=== PATIENT | male | born 1945 | race Caucasian/White ===

== ENCOUNTER → 2016-05-07 | Outpatient (CLI) | payer OTHER, MEDICARE | LOC: BHFA 09:30 | PROVIDERS: ATTEND Internal Medicine | DX: E78.5 Hyperlipidemia, unspecified (principal); J44.9 Chronic obstructive pulmonary disease, unspecified ==

== ENCOUNTER → 2016-05-31 | Outpatient (CLI) | payer OTHER, MEDICARE | LOC: FIMAGING 08:46 | PROVIDERS: ATTEND Family Medicine | DX: M43.16 Spondylolisthesis, lumbar region (principal); M51.86 Other intervertebral disc disorders, lumbar region; M54.5 Low back pain; R53.81 Other malaise; R53.83 Other fatigue; Z79.899 Other long term (current) drug therapy ==

== ENCOUNTER → 2016-08-01 | Outpatient (CLI) | payer OTHER, MEDICARE | LOC: FIMAGING 07:49 | PROVIDERS: ATTEND Family Medicine | DX: M51.36 Other intervertebral disc degeneration, lumbar region (principal); M54.10 Radiculopathy, site unspecified; M51.26 Other intervertebral disc displacement, lumbar region; R26.9 Unspecified abnormalities of gait and mobility ==

== ENCOUNTER → 2016-11-15 | Outpatient (CLI) | payer OTHER, MEDICARE | LOC: CIMAGING 11:17 | PROVIDERS: ATTEND Internal Medicine Pulmonary Disease | DX: R91.1 Solitary pulmonary nodule (principal); I25.10 Atherosclerotic heart disease of native coronary artery without angina pectoris; J43.9 Emphysema, unspecified; R93.421 Abnormal radiologic findings on diagnostic imaging of right kidney | CPT/HCPCS: 71250-PO ==

== ENCOUNTER 2017-04-22 18:52 | Emergency (ER) | payer OTHER, MEDICARE ==
[2017-04-22] MEDS ORDERED: NS 1,000 ML IV ONE (19:09)
--- NOTE | 2017-04-22 19:10 | EDPHY ---
H & P Time Seen by Provider: 04/22/17 18:57 HPI/ROS: This patient reports onset of left flank pain described as "dull, solid and intense pain that started 1 hr after he finished a workout at the gym. He finished work out of 4:00 p.m. And onset of pain was around 5:00 p.m.. After the onset of pain with peak intensity 9/10 he noted some marta colored urine. After 400 mg of ibuprofen at 5 o'clock he reports slight improvement of pain down to a 7 or 8/10. He notes no other exacerbating factors. Symptoms are reminiscent prior ureteral stone though it has been many years. He did have to have a left ureteral stent at [facility] by Dr. Maritza adams several years ago. He reports that he takes CBD well for his degenerative disc disease in his back and also felt the at some improvement from the CBD that he took prior to arrival. He came by private vehicle for further evaluation of his symptoms. ROS: Constitutional: No high fevers or chills. Pulmonary: No cough shortness of breath Cardiovascular: No lightheadedness or heart palpitations GI: No abdominal pain associated with this. He had fleeting nausea at the onset of the pain that has since resolved. : No testicular pain. No dysuria. Musculoskeletal: No midline back pain. Neuro: No numbness tingling or focal weakness. No bowel or bladder incontinence. 10 point ROS is otherwise negative Source: Patient Exam Limitations: No limitations - Medical/Surgical History PMH: Left ureteral stone with stent - Family History Significant Family History: COPD - Social History Smoking Status: Former smoker Alcohol Use: Rarely Drug Use: None - Physical Exam Exam: General Appearance: Alert, no distress. Eyes: Pupils equal and round no pallor or injection. ENT, Mouth: Mucous membranes moist. Respiratory: There are no retractions, lungs are clear to auscultation. Cardiovascular: Regular rate and rhythm. No murmur gallop or rub Gastrointestinal: Abdomen is soft and nontender, no masses, bowel sounds normal. : No testicular tenderness. Minimal left CVA tenderness. No right CVA tenderness. Neurological: GCS 15 with no focal deficits. Skin: Warm and dry, no rashes. Musculoskeletal: Neck is supple nontender. Extremities are symmetrical, full range of motion. Psychiatric: Mood and affect are normal. DIFFERENTIAL DIAGNOSIS: After history and physical exam differential diagnosis was considered for ureteral stone, low back strain, rhabdomyolysis, UTI Constitutional: Initial Vital Signs Temperature (C) 36.7 C 04/22/17 19:13 Heart Rate 81 04/22/17 19:13 Respiratory Rate 16 04/22/17 19:13 Blood Pressure 210/125 H 04/22/17 19:13 O2 Sat (%) 94 04/22/17 19:13 O2 Delivery Mode Room Air Allergies/Adverse Reactions: acetaminophen [From Vicodin] Allergy (Verified 04/22/17 19:11) hydrocodone [From Vicodin] Allergy (Verified 04/22/17 19:11) Home Medications: Medication Instructions Recorded Inhaler 04/22/17 Pravastatin Sodium 04/22/17 Tamsulosin HCl [Flomax 0.4 MG (*)] 0.4 mg PO DAILY #10 cap 04/22/17 traMADol [Ultram 50 mg (*)] 50 - 100 mg PO Q4 PRN #20 tab 04/22/17 Medical Decision Making - Diagnostics Imaging Results: Imaging Impressions Abdomen X-Ray 04/22/17 20:45 Impression: 1. Query right nephrolithiasis. 2. No discernible left ureteral calculi. KUB x-ray: By my interpretation possible 5 mm left ureteral calcification versus sacroiliac calcification. Otherwise normal. Imaging: I viewed and interpreted images myself ED Course/Re-evaluation: Studies: Urinalysis reveals hematuria Basic metabolic panel is normal CPKs normal Course: IV normal saline bolus Toradol 15 mg and lidocaine IV as well as Tylenol p.o. With relief down to 3/10 pain. Patient felt significantly improved Flomax p.o. Reviewed the patient's KUB. I counseled the patient regarding his symptoms. Discussion: Patient likely with left ureteral nephrolithiasis. Given benign belly exam and lack of other significant findings, I do not think the patient has aortic aneurysm or other explanation for symptoms at this time. Given his significant improvement with treatment will give a trial of ibuprofen, tramadol , Flomax follow up with Dr. Lira if he does not passed a stone with filter over the next few days. The patient understands the need to return emergency department should she develop any worsening symptoms despite the treatment plan. - Data Points Laboratory Results: Laboratory Results 04/22/17 19:22 04/22/17 04/22/17 20:30 19:22 Sodium 141 mEq/L mEq/L (135-145) Potassium 4.1 mEq/L mEq/L (3.5-5.2) Chloride 103 mEq/L mEq/L (97-110) Carbon Dioxide 28 mEq/l mEq/l (22-31) Anion Gap 10 mEq/L mEq/L (8-16) BUN 17 mg/dL mg/dL (7-23) Creatinine 1.2 mg/dL mg/dL (0.7-1.3) Estimated GFR 60 Glucose 86 mg/dL mg/dL (70-100) Calcium 10.2 mg/dL mg/dL (8.5-10.4) Creatine Kinase 196 IU/L IU/L (0-224) Urine Color DARK YELLOW Urine Appearance CLOUDY Urine pH 5.5 (5.0-7.5) Ur Specific [place] 1.025 (1.002-1.030) Urine Protein 1+ H (NEGATIVE) Urine Ketones NEGATIVE (NEGATIVE) Urine Blood 3+ H (NEGATIVE) Urine Nitrate NEGATIVE (NEGATIVE) Urine Bilirubin NEGATIVE (NEGATIVE) Urine Urobilinogen 0.2 EU EU (0.2-1.0) Ur Leukocyte Esterase NEGATIVE (NEGATIVE) Urine RBC >182 /hpf H /hpf (0-3) Urine WBC NONE SEEN /hpf /hpf (0-3) Ur Epithelial Cells TRACE /lpf /lpf (NONE-1+) Urine Bacteria TRACE /hpf H /hpf (NONE SEEN) Urine Mucus TRACE /lpf /lpf (NONE-1+) Urine Glucose NEGATIVE (NEGATIVE) Medications Given: Discontinued Medications Acetaminophen (Tylenol) 975 mg PO EDNOW ONE Stop: 04/22/17 19:24 Last Admin: 04/22/17 19:47 Dose: 975 mg Sodium Chloride (Ns) 1,000 mls @ 0 mls/hr IV EDNOW ONE; Wide Open PRN Reason: Protocol Stop: 04/22/17 19:10 Last Admin: 04/22/17 19:22 Dose: 1,000 mls Lidocaine HCl 90 mg/ Sodium (Chloride) 109 mls @ 600 mls/hr IV EDNOW ONE Stop: 04/22/17 19:35 Last Admin: 04/22/17 19:46 Dose: 109 mls Ketorolac Tromethamine (Toradol) 15 mg IVP EDNOW ONE Stop: 04/22/17 19:12 Last Admin: 04/22/17 19:20 Dose: 15 mg Tamsulosin HCl (Flomax) 0.4 mg PO EDNOW ONE Stop: 04/22/17 21:12 Last Admin: 04/22/17 21:29 Dose: 0.4 mg Departure - Departure Disposition: Home, Routine, Self-Care Clinical Impression: Renal colic on left side, History of kidney stones Hematuria Qualifiers: Hematuria type: unspecified type Qualified Code(s): R31.9 - Hematuria, unspecified Condition: Good Instructions: Ureteral Stones (ED) Additional Instructions: Diagnosis: 1. Renal colic 2. Hematuria 3. History of kidney stones You likely have a left ureteral stone causing her symptoms. There is a 5 mm calcification the likely corresponds to this on your x-ray. Plan: Drink plenty fluids. He will likely be able to pass this with aggressive hydration. Filter your urine to document passage Flomax to help dilate the ureter Ibuprofen-600 mg per 6 hr as needed for pain Tylenol in addition if needed Tramadol in addition if needed. No driving, alcohol or come tramadol Follow up with Dr. Yosvany kincaid, urologist if you are unable to pass the stone over the next few days the treatment plan Return to the emergency department for any significant worsening despite the treatment plan Referrals: Sarika Crespo MD [Primary Care Provider] - As per Instructions Abraham Lira MD [Medical Doctor] - As per Instructions Prescriptions: Tamsulosin HCl [Flomax 0.4 MG (*)] 0.4 mg PO DAILY #10 cap traMADol [Ultram 50 mg (*)] 50 - 100 mg PO Q4 PRN #20 tab PRN Reason: breakthrough pain
[2017-04-22] MEDS ORDERED: KETOROLAC 15 MG/1 ML SDV IVP ONE (19:11)
[2017-04-22 19:16] VITALS: TEMP 98.1
[2017-04-22] MEDS ORDERED: ACETAMINOPHEN 325 MG TAB PO ONE (19:23)
[2017-04-22] MEDS ORDERED: LIDOCAINE 1% 90 MG in NS 100 ML IV ONE (19:25)
[2017-04-22] MEDS ORDERED: LIDOCAINE 1% 300 MG/30 ML SDV ONE (19:30)
[2017-04-22] MEDS ORDERED: BENZOCAINE UNIT DOSE SPRAY HURRICAINE MM ONE (19:33)
[2017-04-22 21:00] VITALS: BP 172/102; PULSE 77; RESP 20; O2SAT 90
[2017-04-22] MEDS ORDERED: TAMSULOSIN HCL 0.4 MG CAP PO ONE (21:11)
== END 2017-04-22 21:55 | disposition home or self-care (01) ==
LOC: CED 18:52
DX: N23 Unspecified renal colic (principal); R31.9 Hematuria, unspecified; E86.9 Volume depletion, unspecified; Z87.442 Personal history of urinary calculi; Z87.891 Personal history of nicotine dependence
CPT/HCPCS: 74018; 96361; 96374; 96375; 99284; J1885; 80048-PO; 81003-PO; 81015-PO; 82550-PO

== ENCOUNTER → 2018-06-10 | Outpatient (CLI) | payer OTHER, MEDICARE | LOC: CIMAGING 08:10 | PROVIDERS: ATTEND Internal Medicine Pulmonary Disease | DX: J43.2 Centrilobular emphysema (principal); R06.00 Dyspnea, unspecified; Z87.891 Personal history of nicotine dependence | CPT/HCPCS: 71250-PO ==